=== PATIENT | female | born 1955 | race Caucasian/White ===

== ENCOUNTER 2024-03-20 16:04 | Emergency (ER) | payer MEDICARE, BC, SELFPAY ==
[2024-03-20 16:11] VITALS: BP 144/81; PULSE 93; RESP 18; TEMP 37.3; O2SAT 97; BMI 39.5
--- NOTE | 2024-03-20 16:11 | ED_ITS ---
HPI - General Adult General Date Seen: 03/20/24 Chief complaint: Extremity Pain/Injury, Lower Stated complaint: leg swelling and redness Time Seen by Provider: 03/20/24 16:10 History of Present Illness HPI narrative: 69 yo F with h/o DM2, HTN, hyperlipidemia, elevated BMI, Pancreatic Duct cancer, post-ERCP pancreatitis, cholestasis, anemia, Per records from [facility]. PCP is Pedro in [facility], Dr. Villeda. last checkup 03/14 Follows with [facility] ([facility] record shows a visit 03/13, but scanned visit notes not viewable). Hospitalised at [facility], [place] 02/18- Per DC summary... 69 y.o. with a history of diabetes mellitus, hypertension, hyperlipidemia, lower extremity edema, history of tobacco abuse, who was admitted on 02/19/2024 with 2 weeks of being itchy and then noting her skin was turning yellow. She tried some topical treatments for the itching but they didn't really help. She did note her urine to be darker than usual. She has not been eating well and may have lost some weight. Denied any abdominal pain, nausea or vomiting or early satiety. MRCP showing obstructive biliary disease stricture versus choledocholithiasis. Bilateral adrenal nodules consistent with benign adenomas. ERCP 02/19 with periampullary region with bulging due to dilated bile duct and hindering the papillary orifice. Cannulation unable to be attempted as papillary orifice was not accessible. Biopsy done and pathology confirmed pancreatic ductal adenocarcinoma. GI attempted stent placement again 02/[address]. Developed abdominal pain after ERCP and found to have likely pancreatitis post ERCP which symptoms improved within a day. Successful IR stent placement and drain placement 02/21. Oncology recommended neoadjuvant chemotherapy if no evidence of mets followed by possibility of [facility] as outpatient depending on her choice of which she will be following with. CT chest 02/22 showed no evidence of mets. Had Drain 02/23 capped and not having any abdominal pain and improving liver enzymes. Surgery okay with discharge 02/24 ? Discharge planning Follow-up with oncology and hepatobiliary for ongoing treatment recommendations Repeat CMP, CBC in 2 to 5 days after discharge -Patient developed frequent PACs with aberrancy with some tachycardia related to this. Given elevated blood pressure started on metoprolol and will continue her on that at 25 mg of the extended release Medication changes: Prior she was on Lasix and metformin. We stopped those because of LETICIA in the setting of very low oral intake. Recommended lymphedema wraps for her legs to help manage venous stasis and prevent LETICIA Added metoprolol for premature atrial contractions with some atrial tachycardia likely in the setting of poor oral intake, hypokalemia, fluid shifts in the setting of drain that was putting out a lot of fluid on 02/23. ? Follow up labs/imaging: Repeat comprehensive metabolic panel, CBC in 2 to 5 days. Has scheduled IR percutaneous tube change and drain removal 03/02 PET scan scheduled 03/08 ? Other specialty follow-up not included in DC orders: Oncology follow-up 1 week after discharge Patient her daughter report that she was taken off her Lasix and some or other but general meds while she was in the hospital at [place] and had not been restarted. When she left the hospital her kidney function was apparently a back or near her baseline. She was not have much swelling in her legs. She noticed little bit of puffiness in her ankles for a week or 2 after being in the hospital. She had follow-up labs on March 08 with a creatinine of 1.01 a 2 BUN 14. She still was not restarted are Lasix. She noted a little bit more increasing swelling in her legs last week but in particular with med after doing a lot of walking on Tuesday as noted dramatically increase swelling in both of her feet, ankles, shins all the way up to the knee. She says previously her ankles were gets swollen than the afternoon but then the swelling would go down overnight while she slept in bed. For the past couple of days she has had swelling in her ankles persistent all morning in all afternoon long. Her ankles and calves are tender. They have noted a little bit a redness on both of her shins and ankles but not much warmth. No fever chills, no body aches, no other infection type symptoms. She is not having any shortness of breath. No abdominal swelling. No recurrence of jaundice. She saw her oncologist today who think she needs to restart on her Lasix and already wrote her a new prescription for it. Plan is for her to restart her Lasix tomorrow morning. However, her oncologist wanted her to come to the ER today to have a leg ultrasound to make sure there was no DVT causing the swelling. She has no history of DVT. She is not anticoagulated. No chest pain or shortness of breath. Related Data Home Medications ?Medication ?Instructions ?Recorded ?Confirmed insulin aspart U-100 100 unit/mL 5 unit subcut DAILY 03/20/24 03/20/24 (3 mL) subcutaneous pen (Novolog FlexPen U-100 Insulin aspart) insulin glargine 100 unit/mL (3 36 - 42 unit subcut QPM 03/20/24 03/20/24 mL) subcutaneous pen (Lantus Solostar U-100 Insulin) [id number] 2 cap PO 03/20/24 36,000-114,000-180,000 unit capsule,delay rel (Creon) metoprolol succinate 25 mg mg PO 03/20/24 tablet,extended release 24 hr Previous Rx's ?Medication ?Instructions ?Recorded potassium chloride 10 mEq 10 meq PO DAILY #10 caps 03/20/24 capsule,extended release Allergies Allergy/AdvReac Type Severity Reaction Status Date / Time No Known Drug Allergies Allergy Verified 03/20/24 16:15 [facility] Social History Smoking Status: Never smoker Do you use any of these nicotine containing products: None How often do you have a drink containing alcohol: never How often do you have six or more drinks on one occasion: Never AUDIT-C Alcohol total score: 0 Non-prescribed substance use: denies use Exam Narrative: Exam Narrative: Constitutional: Appears well-developed and well-nourished. Alert. Conversant. Non toxic. HENT: Head: Atraumatic. Nose: Nose normal. Mouth/Throat: Oral mucosa is clear and moist. no trismus. Eyes: Conjunctivae normal. EOM normal. Pupils equal, round, and reactive to light. No scleral icterus. Neck: Normal range of motion. Neck supple. No tracheal deviation present. Cardiovascular: Normal rate, regular rhythm. No gallop. No friction rub. No murmur heard. Symmetric radial artery pulses . Normal cap refill in both feet but unable to palpate DP pulses due to significant overlying edema Pulmonary/Chest: Effort normal. No stridor. No respiratory distress. No wheezes. No rales. No rhonchi . No tenderness. Abdominal: Soft. No distension. No mass. No tenderness. No rebound. No guarding. No HSM. Musculoskeletal: RUE: Normal range of motion. No tenderness. No deformity LUE: Normal range of motion. No tenderness. No deformity RLE: Normal range of motion. 3+ pitting edema with firmness of the skin and fairly diffuse mild redness on the anterior pablo and foot. Symmetric at the other leg. No deformity LLE: Normal range of motion. 3+ pitting edema with firmness of the skin and fairly diffuse mild redness on the anterior pablo and foot. Symmetric with her other leg.. No deformity Lymph: No ascending lymphangitis Neurological: Alert and oriented to person, place, and time. Normal strength. CN II-VII intact. No sensory deficit. GCS eye subscore is 4. GCS verbal subscore is 5. GCS motor subscore is 6. Normal coordination Skin: Skin is warm and dry. No rash noted. No pallor. Normal capillary refill. Psychiatric: Normal mood. Normal affect. Const: Vital Signs, click to edit/add: Vital Signs - 24 hr 03/20/24 16:11 Temperature 99.1 F Pulse Rate [Right Pulse Oximeter] 93 Respiratory Rate 18 Blood Pressure [Ri ght Upper Arm] 144/81 H Pulse Oximetry 97 Oxygen Delivery Me thod Room Air Course Vital Signs Vital signs: Initial Vital Signs Temperature 99.1 F 03/20/24 16:11 Temperature Source Temporal Artery Scan 03/20/24 16:11 Pulse Rate 93 03/20/24 16:11 Respiratory Rate 18 03/20/24 16:11 Blood Pressure 144/81 H 03/20/24 16:11 Blood Pressure Mean 102 03/20/24 16:11 Blood Pressure Position Sitting 03/20/24 16:11 Pulse Oximetry 97 03/20/24 16:11 Oxygen Delivery Method Room Air 03/20/24 16:11 Vital Signs Temperature 99.1 F 03/20/24 16:11 Pulse Rate 93 03/20/24 16:11 Respiratory Rate 18 03/20/24 16:11 Blood Pressure 144/81 H 03/20/24 16:11 Pulse Oximetry 97 03/20/24 16:11 Oxygen Delivery Method Room Air 03/20/24 16:11 Temperature 99.1 F 03/20/24 16:11 Pulse Rate 93 03/20/24 16:11 Respiratory Rate 18 03/20/24 16:11 Blood Pressure 144/81 H 03/20/24 16:11 Pulse Oximetry 97 03/20/24 16:11 Oxygen Delivery Method Room Air 03/20/24 16:11 Medical Decision Making [facility] Narrative Medical decision making narrative: Very pleasant 69-year-old female with pancreatic cancer presenting to the ER today with symmetric bilateral lower extremity edema, redness, swelling, discomfort. She had been taken off her Lasix last month while in the hospital for cholestasis due to CBD obstruction at from her pancreatic mass. She has slowly developed peripheral edema since then with significant edema and pain for the past couple of days. She was sent to the ER today by her oncologist have an ultrasound to rule out DVT. This is obtained and there is no evidence for DVT Differential would also include renal failure with nephrotic syndrome. Repeat labs today show baseline BUN and creatinine. Differential would also include fulminant hepatic failure. However she is not having any abdominal pain, right upper quadrant tenderness, jaundice. LFTs are normal. No shortness of breath. Lung sounds clear. No evidence for CHF. She has normal oxygen saturation on room air. At this point we will follow her oncologist plan of care. She will start her Lasix 20 mg by mouth in the morning. Labs also shows that she has hypokalemia. Potassium was 2.9. We anticipate this will likely drop further when she starts on the Lasix. Therefore will try to supplement her potassium. I had a detailed discussion with the patient and her daughter about potassium rich foods. Will also start on potassium chloride daily supplements. Recommend follow up her labs with her oncologist or primary care within 2-3 days. Precautions for return to the ER reviewed. Lab Data Labs: Lab Results 03/20/24 Range/Units 16:57 Sodium 137 (135-149) mmol/L Potassium 2.9 L* (3.6-5.1) mmol/L Chloride 98 (96-114) mmol/L Carbon Dioxide 30 (20-32) mmol/L Anion Gap 9 (7-15) mEq/L BUN 12 (7-30) mg/dL Creatinine 0.8 (0.5-1.5) mg/dL Estimated Creat Clear 52.05 Estimated GFR 79 ml/min Glucose 169 H (60-115) mg/dL Calcium 8.8 (8.4-10.6) mg/dL Total Bilirubin 1.2 (0.1-1.5) mg/dL AST 18 (12-35) U/L ALT 14 (4-35) U/L Alkaline Phosphatase 217 H (40-150) U/L Total Protein 6.7 (6.0-8.3) g/dL Albumin 3.7 (3.3-5.0) g/dL Discharge Plan Discharge Clinical Impression: Edema, peripheral Patient Disposition: Home, Self-Care Condition: Stable Instructions: Leg Edema (ED) Additional Instructions: As we discussed, so for the workup for your edema looks good. No blood clots on your ultrasound. No signs of liver failure or renal failure causing your swelling. To help the edema go down, please try to keep her feet elevated when possible. Stick to a low-sodium diet. Start on the furosemide as directed by your oncologist. Please monitor your weight and recorded each morning to help your oncologist measure how much fluid you are losing from the furosemide. Furosemide can often cause low potassium. Your potassium today is already mildly low. I want you to start on a potassium supplement along with the furosemide. Take the potassium supplement for the next few days and that you can follow-up with your oncologist or your regular doctor for repeat lab test. If your potassium is normal and stable, you may be able to go off the potassium supplements. Prescriptions: New potassium chloride 10 mEq capsule, extended release 10 meq PO DAILY Qty: 10 3RF No Action metoprolol succinate 25 mg tablet extended release 24 hr PO insulin aspart U-100 [Novolog FlexPen U-100 Insulin] 100 unit/mL (3 mL) insulin pen 5 unit subcut DAILY insulin glargine [Lantus Solostar U-100 Insulin] 100 unit/mL (3 mL) insulin pen 36 - 42 unit subcut QPM Creon 36,000-114,000- 180,000 unit capsule,delayed release(DR/EC) 2 cap PO Follow Up/Referrals: Provider,Not a Local [Primary Care Provider] - Stand Alone Forms: [employer] Info Instructions
--- NOTE | 2024-03-20 16:40 | CRLHL7_ITS ---
For Patients: As a result of the Century Cures Act, medical imaging exams and procedure reports are released immediately into your electronic medical record. You may view this report before your referring provider. If you have questions, please contact your health care provider. INDICATION: Leg pain and swelling. TECHNIQUE: Ultrasound venous duplex bilateral lower extremity. Compression venous exam was performed using parker-scale, color Doppler, and spectral Doppler analysis. COMPARISON: None. FINDINGS: Deep veins: The bilateral common femoral, superficial femoral, deep femoral, popliteal, and posterior tibial veins are fully compressible and patent. Superficial veins: Greater saphenous vein is fully compressible. No popliteal cyst. IMPRESSION: : Unremarkable ultrasound of the bilateral lower extremity veins. No sign of venous thrombus. Dictated by Higinio Arthur MD @ 03/20/2024 5:43:30 PM (Electronically Signed)
[2024-03-20 17:39] LABS: Albumin* 3.7 g/dL (3.3-5.0); Chloride* 98 mmol/L (96-114); Sodium* 137 mmol/L (135-149)
[2024-03-20 17:41] LABS: Bilirubin Total* 1.2 mg/dL (0.1-1.5); Creatinine* 0.8 mg/dL (0.5-1.5); Est. Creatinine Clearance* 52.05; Estimated Glomerular Filt Rate 79 ml/min
[2024-03-20 17:42] LABS: Alanine Aminotransferase* 14 U/L (4-35); Alkaline Phosphatase* 217 U/L (40-150); Anion Gap 9 mEq/L (7-15); Aspartate Amino Transferase* 18 U/L (12-35); Blood Urea Nitrogen* 12 mg/dL (7-30); Calcium* 8.8 mg/dL (8.4-10.6); Carbon Dioxide* 30 mmol/L (20-32); Glucose* 169 mg/dL (60-115); Total Protein* 6.7 g/dL (6.0-8.3)
[2024-03-20 17:49] LABS: Potassium* 2.9 mmol/L (3.6-5.1)
--- NOTE | 2024-03-20 17:55 | ED.NURSE ---
Critical lab report of potassium 2.9, MD aware.
== END 2024-03-20 18:11 | disposition home or self-care (01) ==
PROVIDERS: Emergency Provider Emergency Medicine
DX: R60.9 Edema, unspecified (principal)
CPT/HCPCS: 36415; 80053; 93970; 99283; 99284

== ENCOUNTER 2025-01-28 12:30 | Outpatient (RCR) | payer MEDICARE, BC, SELFPAY | END 2025-05-28 23:59 | disposition home or self-care (01) | PROVIDERS: Visit Provider Family Medicine | DX: C25.3 Malignant neoplasm of pancreatic duct (principal); C25.9 Malignant neoplasm of pancreas, unspecified; M62.81 Muscle weakness (generalized); Z51.89 Encounter for other specified aftercare | CPT/HCPCS: 97110; 97140; 97161; 97162; 97164; 97535 ==